=== PATIENT | female | born 1980 | race Two or more races ===

== ENCOUNTER 2022-04-24 11:02 | Emergency (ER) | payer OTHER ==
[~2022-04-24] VITALS: Ht 157.5 cm; Wt 75.6 kg
[2022-04-24 11:12] VITALS: BP 126/81
[2022-04-24] MEDS ORDERED: IBUP800T27 PO (12:07)
[2022-04-24] MEDS ORDERED: PRED20TA2 PO (12:07)
[2022-04-24] MEDS ORDERED: AMOX-277 PO (12:07)
== END 2022-04-24 12:12 | disposition home or self-care (01) ==
LOC: ER 11:02
DX: H66.92 Otitis media, unspecified, left ear (principal); K04.7 Periapical abscess without sinus

== ENCOUNTER 2022-05-26 21:59 | Emergency (ER) | payer OTHER ==
[~2022-05-26] VITALS: Ht 157.5 cm; Wt 75.0 kg
[~2022-05-26 21:59] MED LIST: AMOX-277 PO; IBUP800T27 PO; PRED20TA2 PO
[2022-05-27] MEDS ORDERED: AMOX-277 PO (00:27)
[2022-05-27] MEDS ORDERED: ACET-1158 PO (00:27)
[2022-05-27 03:55] VITALS: BP 136/92
== END 2022-05-27 03:59 | disposition home or self-care (01) ==
LOC: ER 22:03
DX: H93.11 Tinnitus, right ear (principal); H92.02 Otalgia, left ear; Z90.49 Acquired absence of other specified parts of digestive tract; Z79.1 Long term (current) use of non-steroidal anti-inflammatories (NSAID); Z79.2 Long term (current) use of antibiotics; Z79.899 Other long term (current) drug therapy